=== PATIENT | female | born 1940 | race Caucasian/White ===

== ENCOUNTER 2024-09-16 17:10 | Inpatient (IN) | payer MEDICARE ==
[~2024-09-16] VITALS: Ht 162.6 cm; Wt 65.8 kg
[~2024-09-16 17:10] MED LIST: AMLODIPINE BESY10 MG PO; COREG12.5 MG PO; IRON325 M1 PO
[2024-09-16 17:40] VITALS: PULSE 57; RESP 16; TEMP 97.5
[2024-09-16 18:16] LABS: BASOPHILS # (AUTO) 0.1 (0.0-0.1); BASOPHILS % 0.7 % (0.0-1.0); EOSINOPHILS # (AUTO) 0.3 (0.0-0.4); EOSINOPHILS % 2.8 % (0.0-6.0); HEMATOCRIT 34.2 % (34.2-44.1); HEMOGLOBIN 11.4 g/dL (12.0-16.0); LYMPHOCYTES % 21.5 % (18.0-39.1); MEAN CORPUSCULAR HEMOGLOBIN 32.4 pg (28-32); MEAN CORPUSCULAR HGB CONC 33.3 g/dL (31-35); MEAN CORPUSCULAR VOLUME 97.2 fL (81-99); MONOCYTES # (AUTO) 0.8 (0.2-0.8); MONOCYTES % 9.2 % (4.4-11.3); NEUTROPHILS % 65.4 % (38.7-80.0); PLATELET COUNT 286 x10e3/uL (140-360); RED BLOOD COUNT 3.52 x10e6/uL (3.6-5.1); RED CELL DISTRIBUTION WIDTH 13.2 % (11.7-14.4); WHITE BLOOD COUNT 9.17 x10e3/uL (4.8-10.8)
[2024-09-16 18:28] LABS: ALBUMIN 3.8 g/dL (3.5-5.0); ALBUMIN/GLOBULIN RATIO 1.2 (0.8-2.0); BILIRUBIN,TOTAL 0.2 mg/dL (0.2-1.2); CALCIUM 8.4 mg/dL (8.4-10.2); CREATININE, SERUM 1.31 mg/dL (0.57-1.11)
[2024-09-16] MEDS: ONDANSETRON HCL INJ 2MG/ML 2ML 2 MG/ML VIAL IV STA (18:45)
[2024-09-16] MEDS: SODIUM CHLORIDE 0.9% 1000ML 1,000 ML IV ONE (18:46)
[2024-09-16] MEDS: Morphine 4mg INJECTION 4 MG/ML INJ IV ONE (18:46)
[2024-09-16] MEDS ORDERED: IOPAMIDOL 370 MG/ML 100 ML INFUS..BTL INJ ONE (18:49)
[2024-09-16 19:36] LABS: BILIRUBIN,URINE NEGATIVE (NEGATIVE); CLARITY,URINE CLEAR (CLEAR); COLOR,URINE YELLOW (YELLOW); GLUCOSE, URINE NEGATIVE (NEGATIVE); KETONES,URINE NEGATIVE (NEGATIVE); LEUKOCYTE ESTERASE ,URINE TRACE (NEGATIVE); NITRITE,URINE NEGATIVE (NEGATIVE); PH,URINE 6.5 (5 - 7); PROTEIN,URINE DIPSTICK NEGATIVE (NEGATIVE); URINE UROBILINOGEN 0.2 mg/dL (0.2 - 1)
[2024-09-16 19:59] LABS: BACTERIA,URINE FEW /HPF; EPITHELIAL CELLS,URINE FEW /LPF
[2024-09-16] MEDS: SODIUM CHLORIDE 0.9% 1000ML 1,000 ML IV SCH (20:49)
[2024-09-16 22:15] VITALS: PULSE 48; RESP 18; O2SAT 98
[2024-09-16 23:00] VITALS: BP 122/53; PULSE 50; RESP 18; TEMP 97.7; O2SAT 99
[2024-09-17] VITALS (10 sets, daily range): BP systolic 108–139; BP diastolic 49–62; PULSE 51–60; RESP 16–20; TEMP 97.5–98.3; O2SAT 96–98
[2024-09-17] MEDS: Morphine 4mg INJECTION 4 MG/ML INJ IV PRN (00:31)
[2024-09-17] MEDS: ONDANSETRON HCL INJ 2MG/ML 2ML 2 MG/ML VIAL IV PRN (00:32)
[2024-09-17] MEDS ORDERED: VESICARE5 MG PO (02:39)
[2024-09-17] MEDS ORDERED: ASPIRIN EC81 MG PO (02:39)
[2024-09-17 05:41] LABS: BASOPHILS # (AUTO) 0.1 (0.0-0.1); BASOPHILS % 0.7 % (0.0-1.0); EOSINOPHILS # (AUTO) 0.4 (0.0-0.4); HEMATOCRIT 28.4 % (34.2-44.1); HEMOGLOBIN 9.5 g/dL (12.0-16.0); LYMPHOCYTES # (AUTO) 1.9 (1.0-3.2); LYMPHOCYTES % 27.3 % (18.0-39.1); MEAN CORPUSCULAR HEMOGLOBIN 32.6 pg (28-32); MEAN CORPUSCULAR HGB CONC 33.5 g/dL (31-35); MEAN CORPUSCULAR VOLUME 97.6 fL (81-99); MONOCYTES # (AUTO) 0.6 (0.2-0.8); MONOCYTES % 8.6 % (4.4-11.3); NEUTROPHILS # (AUTO) 4.1 (2.1-6.9); NEUTROPHILS % 58.1 % (38.7-80.0); PLATELET COUNT 240 x10e3/uL (140-360); RED BLOOD COUNT 2.91 x10e6/uL (3.6-5.1); RED CELL DISTRIBUTION WIDTH 13.2 % (11.7-14.4); WHITE BLOOD COUNT 7.07 x10e3/uL (4.8-10.8)
[2024-09-17 06:02] LABS: ALBUMIN/GLOBULIN RATIO 1.3 (0.8-2.0); ANION GAP 9.8 mmol/L (8-16); BILIRUBIN,TOTAL 0.3 mg/dL (0.2-1.2); CALCIUM 7.5 mg/dL (8.4-10.2); CREATININE, SERUM 0.89 mg/dL (0.57-1.11); POTASSIUM 3.8 mmol/L (3.5-5.1); TOTAL PROTEIN 5.4 g/dL (6.5-8.1)
[2024-09-18] VITALS (7 sets, daily range): BP systolic 120–160; BP diastolic 54–66; PULSE 53–70; RESP 18–20; TEMP 97.5–98.7; O2SAT 95–100
[2024-09-18] MEDS: ATENOLOL 50 MG TAB PO SCH (17:14)
[2024-09-19] VITALS (7 sets, daily range): BP systolic 130–165; BP diastolic 59–66; PULSE 52–62; RESP 18; TEMP 97.1–98.3; O2SAT 96–99
[2024-09-20] VITALS: BP 168/52; PULSE 66; RESP 18; TEMP 97.7; O2SAT 100
[2024-09-20 04:00] VITALS: BP 139/61; PULSE 60; RESP 18; TEMP 97.8; O2SAT 100
[2024-09-20 08:00] VITALS: BP 148/70; PULSE 66; RESP 18; TEMP 97; O2SAT 100
[2024-09-20 08:23] VITALS: BP 148/70; PULSE 66; RESP 18; TEMP 97; O2SAT 96
[2024-09-20] MEDS ORDERED: PANTOPRAZOLE SO40 MG PO (08:30)
[2024-09-20] MEDS: BISACODYL 10 MG SUPP PR ONE (09:48)
[2024-09-20] MEDS: SODIUM CHLORIDE 0.9% 1000ML 1,000 ML IV SCH (09:48)
[2024-09-20 10:06] LABS: BASOPHILS # (AUTO) 0.1 (0.0-0.1); BASOPHILS % 0.8 % (0.0-1.0); EOSINOPHILS # (AUTO) 0.1 (0.0-0.4); EOSINOPHILS % 0.8 % (0.0-6.0); HEMATOCRIT 32.8 % (34.2-44.1); HEMOGLOBIN 11.5 g/dL (12.0-16.0); LYMPHOCYTES # (AUTO) 1.1 (1.0-3.2); LYMPHOCYTES % 12.6 % (18.0-39.1); MEAN CORPUSCULAR HEMOGLOBIN 32.7 pg (28-32); MEAN CORPUSCULAR HGB CONC 35.1 g/dL (31-35); MEAN CORPUSCULAR VOLUME 93.2 fL (81-99); MONOCYTES # (AUTO) 0.5 (0.2-0.8); MONOCYTES % 5.6 % (4.4-11.3); NEUTROPHILS # (AUTO) 6.9 (2.1-6.9); PLATELET COUNT 308 x10e3/uL (140-360); RED BLOOD COUNT 3.52 x10e6/uL (3.6-5.1); RED CELL DISTRIBUTION WIDTH 13.4 % (11.7-14.4)
[2024-09-20] MEDS: LACTULOSE SYRUP 20 GM/30 ML UDC PO PRN (10:43)
[2024-09-20 11:43] LABS: ANION GAP 16.6 mmol/L (8-16); CALCIUM 8.8 mg/dL (8.4-10.2); CREATININE, SERUM 1.17 mg/dL (0.57-1.11); POTASSIUM 3.6 mmol/L (3.5-5.1)
[2024-09-20] MEDS: MINERAL OIL 132 ML BTL PR ONE (11:53)
[2024-09-20 12:20] VITALS: BP 145/58; PULSE 67; RESP 20; TEMP 97.7; O2SAT 100
[2024-09-20] MEDS: ONDANSETRON HCL INJ 2MG/ML 2ML 2 MG/ML VIAL IV PRN (14:02)
[2024-09-20] MEDS: Morphine 2mg Syringe 2 MG/ML SYR IV PRN (14:02)
[2024-09-20] MEDS: SENNA-S TABLET PO SCH (17:00)
[2024-09-20 21:52] VITALS: BP 141/58; PULSE 68; RESP 20; TEMP 97.7; O2SAT 100
[2024-09-21 04:48] VITALS: BP 148/57; PULSE 66; RESP 16; TEMP 99.1; O2SAT 100
[2024-09-21 06:05] LABS: % IRON SATURATION 22 % (15-50); IRON 52 ug/dL (50-170); TOTAL IRON BINDING CAPACITY 238 ug/dL (261-478); TRANSFERRIN 170 mg/dL (180-382)
[2024-09-21 06:40] LABS: FOLATE 14.4 ng/mL (7.0-15.4)
[2024-09-21 08:12] VITALS: BP 141/52; PULSE 60; RESP 19; TEMP 97.7; O2SAT 100
[2024-09-21 11:23] VITALS: BP 141/52; PULSE 60; RESP 19; TEMP 97.7; O2SAT 100
[2024-09-21 12:09] VITALS: BP 158/58; PULSE 56; RESP 20; TEMP 98.1; O2SAT 100
[2024-09-21 16:55] VITALS: BP 147/58; PULSE 54; RESP 19; TEMP 98.1; O2SAT 100
[2024-09-21 20:00] VITALS: BP 168/62; PULSE 60; RESP 20; TEMP 97.9; O2SAT 100
[2024-09-22] VITALS: BP 157/60; PULSE 59; RESP 17; TEMP 98; O2SAT 100
[2024-09-22 04:00] VITALS: BP 148/57; PULSE 59; RESP 16; TEMP 98.4; O2SAT 100
[2024-09-22 10:13] VITALS: BP 145/61; PULSE 51; RESP 18; TEMP 97.9; O2SAT 100
[2024-09-22] MEDS ORDERED: COREG12.5 MG PO (10:37)
[2024-09-22] MEDS ORDERED: AUGMENTIN 500-1 EACH PO (10:37)
[2024-09-22] MEDS ORDERED: LOSARTAN POTASS25 MG PO (10:37)
[2024-09-22 11:26] VITALS: BP 150/54; PULSE 52; RESP 18; TEMP 97.7; O2SAT 100
== END 2024-09-22 11:52 | disposition home or self-care (01) | DRG 389 ==
LOC: ER 18:06 → ERHOLD 20:20 → MED/SURG2 23:31
PROVIDERS: ADMIT Internal Medicine; ATTEND Internal Medicine
DX: K56.600 Partial intestinal obstruction, unspecified as to cause (principal); N17.9 Acute kidney failure, unspecified; N39.0 Urinary tract infection, site not specified; I12.9 Hypertensive chronic kidney disease with stage 1 through stage 4 chronic kidney disease, or unspecified chronic kidney disease; N18.9 Chronic kidney disease, unspecified; D63.1 Anemia in chronic kidney disease; R35.0 Frequency of micturition; R33.9 Retention of urine, unspecified; R31.29 Other microscopic hematuria; K59.00 Constipation, unspecified; B95.1 Streptococcus, group B, as the cause of diseases classified elsewhere; Z90.49 Acquired absence of other specified parts of digestive tract
CPT/HCPCS: 36415; 74018; 74019; 74177; 80048; 80053; 81001; 82607; 82746; 83540; 83690; 84466; 85025; 85045; 87086; 93005; 94799; 99252; 99284; J2270; J2405; J2470; J2543; J7030; Q9967